=== PATIENT | female | born 1995 | race African-American/Black ===

== ENCOUNTER 2022-10-08 07:21 | Emergency (ER) | payer OTHER, SELFPAY ==
--- NOTE | ~2022-10-08 | XR_ITS ---
XR chest 1V portable DATE: 10/08/2022 08:37 INDICATION: Shortness of breath for 3 days. Positive Covid today. TECHNIQUE: 2 portable upright AP views on 10/08/2022 at 0831 hours COMPARISON: None FINDINGS: Normal heart size. No hilar or mediastinal enlargement. No pulmonary infiltrate or consolid ation, pleural effusion or pulmonary vascular congestion or pneumothorax. Surgical clips, right upper quadrant, consistent with cholecystectomy. IMPRESSION: No active cardiopulmonary disease Reviewed, dictated and finalized at location [facility]
[2022-10-08 07:26] VITALS: BP 124/76; PULSE 102; RESP 16; TEMP 37.8; O2SAT 100
--- NOTE | 2022-10-08 09:09 | ED.BACK ---
HPI - Back Pain/Injury General Chief Complaint: Back Pain/Injury Stated Complaint: Back pain Time Seen by Provider: 10/08/22 08:01 History of Present Illness HPI Narrative: Pt [place] days ago and noticed pain in mid back. Pt says it is uncomfortable to move in certain wasy and she has had trouble getting comfortable to sleep at night. Pt then had her sone test positive fro covid and she tested positive as well and became concerned it might be covid related. Pt denies SOB or fever. Pt does have a dry cough. Related Data Allergies Allergy/AdvReac Type Severity Reaction Status Date / Time No Known Allergies Allergy Verified 10/08/22 07:31 Review of Systems Review of Systems: All systems reviewed & are unremarkable except as noted in HPI and below Exam Const: General: healthy appearing Nutritional Appearance: well nourished Orientation/consciousness: patient oriented x3 Limitations: no limitations Chest: Chest palpation & inspection: normal inspection of the chest Resp: Effort & Inspection: normal respiratory effort Auscultation: clear to auscultation bilaterally Cardio: Rate: regular rate Rhythm: regular rhythm GI: GI Palp: Yes Soft to palpation Auscultation: normal bowel sounds Back/Spine/Pelvis: Other: pt has mid back paraspinous spasm and tenderness no midline pain Skin: General skin exam: normal color Wounds: no wounds Neuro: General: patient oriented x3, moves all extremities and no focal motor deficits Cranial nerves: Yes Nystagmus not present Speech: normal speech Extrem: General: normal to inspection and no clubbing, cyanosis or edema Psych: Mental Status: mental status grossly normal Affect: normal affect Attitude: cooperative Course Vital Signs Vital signs: Vital Signs Temperature 100.1 F H 10/08/22 07:26 Pulse Rate 102 H 10/08/22 07:26 Respiratory Rate 16 10/08/22 07:26 Blood Pressure 124/76 10/08/22 07:26 Pulse Oximetry 100 10/08/22 07:26 Oxygen Delivery Room Air 10/08/22 07:26 Temperature 100.1 F H 10/08/22 07:26 Pulse Rate 87 10/08/22 09:24 Respiratory Rate 16 10/08/22 09:24 Blood Pressure 108/76 10/08/22 09:24 Pulse Oximetry 99 10/08/22 09:24 Oxygen Delivery Room Air 10/08/22 07:26 MDM - Back Pain/Injury MDM Narrative Medical decision making narrative: pt likely has musculoskelatal back pain but will check cxr to make sure not covid. will get cxr to be safe. x ray neg can discharge on muscle relaxers and NSAIDS Differential Diagnosis Differential diagnosis: Likely thoracic back pain Discharge Plan Discharge Clinical Impression: Acute thoracic back pain Patient Disposition: Home, Self-Care Condition: Stable Instructions: Antibiotic Form, Back Pain (ED), COVID-19 (Coronavirus Disease 2019) (ED) Prescriptions: New naproxen [Naprosyn] 500 mg tablet 500 mg PO BID Qty: 20 0RF cyclobenzaprine 10 mg tablet 10 mg PO TID Qty: 14 0RF Follow-up/Referrals: PHYSICIAN,[employer] [Primary Care Provider] -
[2022-10-08 09:24] VITALS: BP 108/76; PULSE 87; RESP 16; O2SAT 99
== END 2022-10-08 09:36 | disposition home or self-care (01) ==
PROVIDERS: Emergency Provider Emergency Medicine
DX: M54.6 Pain in thoracic spine (principal); U07.1 COVID-19
CPT/HCPCS: 71045; 99283